=== PATIENT | male | born 1950 | race Caucasian/White ===

== ENCOUNTER 2018-01-28 12:32 | Inpatient (IN) | payer OTHER, MEDICAID, MEDICARE ==
[2018-01-28] MEDS: morphine 4 MG/ML VIAL IV (13:20)
[2018-01-28] MEDS: ONDANSETRON 4 MG INJ IV (13:20)
[2018-01-28] MEDS: NITROGLYCERIN 2% 1 GM OINT PKT TD (13:20)
[2018-01-28] MEDS: ASPIRIN 81 MG TAB PO (13:20)
[2018-01-28] MEDS: NITROGLYCERIN (SL) 0.4 MG TAB SL (13:21)
[2018-01-28 13:27] LABS: ADD MAN DIFF? NO
[2018-01-28 13:30] LABS: BASOPHIL # 0.1 10^3/ul (0.0-0.1); BASOPHILS % 0.7 % (0.0-2.0); EOSINOPHILS # 0.4 10^3/ul (0.0-0.5); EOSINOPHILS % 3.9 % (0.0-7.0); HEMATOCRIT 33.7 % (42.0-52.0); HEMOGLOBIN 11.7 g/dl (14.0-18.0); LYMPHOCYTES # 1.6 10^3/ul (0.8-2.9); LYMPHOCYTES % 17.6 % (15.0-51.0); MEAN CORPUSCULAR HEMOGLOBIN 30.8 pg (29.0-33.0); MEAN CORPUSCULAR HGB CONC 34.7 g/dl (32.0-37.0); MEAN CORPUSCULAR VOLUME 88.7 fl (82.0-101.0); MEAN PLATELET VOLUME 11.1 fl (7.4-10.4); MONOCYTE # 0.9 10^3/ul (0.3-0.9); MONOCYTES % 10.1 % (0.0-11.0); NEUTROPHIL # 6.1 10^3/ul (1.6-7.5); NEUTROPHILS % 67.4 % (39.0-77.0); PLATELET COUNT 200 10^3/UL (140-415); RED CELL DISTRIBUTION WIDTH 12.8 % (11.5-14.5)
[2018-01-28 13:34] LABS: INR 0.92; PARTIAL THROMBOPLASTIN TIME 28.1 Sec (23.0-35.0); PROTIME 12.4 Sec (11.9-14.9)
[2018-01-28 13:36] LABS: ALANINE AMINOTRANSFERASE 35 IU/L (13-69); ALBUMIN 4.3 g/dl (3.3-4.9); ALBUMIN/GLOBULIN RATIO 1.43; ALKALINE PHOSPHATASE 97 IU/L (42-121); ANION GAP 12 (8-16); ASPARTATE AMINO TRANSFERASE 46 IU/L (15-46); BILIRUBIN,INDIRECT 0.4 mg/dl (0-1.1); BILIRUBIN,TOTAL 0.4 mg/dl (0.2-1.3); BLOOD UREA NITROGEN 21 mg/dl (7-20); CALCIUM 9.8 mg/dl (8.4-10.2); CARBON DIOXIDE 25 mmol/L (21-31); CHLORIDE 111 mmol/L (97-110); CREATININE 1.28 mg/dl (0.61-1.24); GLUCOSE 138 mg/dl (70-220); POTASSIUM 4.1 mmol/L (3.5-5.1); SODIUM 144 mmol/L (135-144); TOTAL PROTEIN 7.3 g/dl (6.1-8.1)
[2018-01-28 13:48] LABS: B-TYPE NATRIURETIC PEPTIDE 1170 PG/ML (0-125)
[2018-01-28] MEDS ORDERED: ONDANSETRON 4 MG INJ IV ×2 (15:00→16:00)
[2018-01-28] MEDS ORDERED: ACETAMINOPHEN 325 MG TAB PO (15:00)
[2018-01-28] MEDS: SOD CHLORIDE 0.9% 1,000 ML IV (15:28)
[2018-01-28] MEDS ORDERED: morphine 2 MG INJ IV (16:00)
[2018-01-28] MEDS ORDERED: NACL 0.9% 3 ML SYG IV (16:00)
[2018-01-28] MEDS ORDERED: NITROGLYCERIN (SL) 0.4 MG TAB SL (16:00)
[2018-01-28] MEDS ORDERED: HYDROCODONE/APAP (5/325) TAB PO (16:00)
[2018-01-28] MEDS: ENOXAPARIN 100 MG/ML SYG SC (16:03)
[2018-01-28] MEDS: ISOSORBIDE MONONITRATE(SR)30 MG TAB PO (18:37)
[2018-01-28 19:23] LABS: CREATINE KINASE 165 IU/L (23-200)
[2018-01-28 19:32] LABS: CK INDEX 1.1; CK-MB 1.81 ng/ml (0.0-2.4)
[2018-01-28] MEDS: FAMOTIDINE 20 MG TAB PO (20:50)
[2018-01-28] MEDS: ATORVASTATIN 80 MG TAB PO (20:50)
[2018-01-28] MEDS: TICAGRELOR 90 MG TABLET PO (20:56)
[2018-01-28] MEDS ORDERED: ATORVASTATIN 20 MG TAB PO (21:00)
[2018-01-29 01:19] LABS: CREATINE KINASE 131 IU/L (23-200)
[2018-01-29] MEDS: NITROGLYCERIN (SL) 0.4 MG TAB SL (05:16)
[2018-01-29 05:42] LABS: ADD MAN DIFF? NO
[2018-01-29 05:49] LABS: BASOPHIL # 0.1 10^3/ul (0.0-0.1); BASOPHILS % 0.8 % (0.0-2.0); EOSINOPHILS # 0.5 10^3/ul (0.0-0.5); EOSINOPHILS % 5.2 % (0.0-7.0); HEMATOCRIT 29.6 % (42.0-52.0); HEMOGLOBIN 10.1 g/dl (14.0-18.0); LYMPHOCYTES # 1.4 10^3/ul (0.8-2.9); MEAN CORPUSCULAR HGB CONC 34.1 g/dl (32.0-37.0); MEAN CORPUSCULAR VOLUME 90.8 fl (82.0-101.0); MEAN PLATELET VOLUME 10.7 fl (7.4-10.4); MONOCYTE # 0.8 10^3/ul (0.3-0.9); MONOCYTES % 8.9 % (0.0-11.0); NEUTROPHIL # 6.4 10^3/ul (1.6-7.5); NEUTROPHILS % 69.7 % (39.0-77.0); PLATELET COUNT 176 10^3/UL (140-415); RED BLOOD COUNT 3.26 10^6/ul (4.70-6.10); RED CELL DISTRIBUTION WIDTH 13.1 % (11.5-14.5)
[2018-01-29 05:49] LABS: WHITE BLOOD COUNT 9.2 10^3/ul (4.8-10.8)
[2018-01-29 06:16] LABS: ALANINE AMINOTRANSFERASE 48 IU/L (13-69); ALBUMIN 3.1 g/dl (3.3-4.9); ALBUMIN/GLOBULIN RATIO 1.14; ALKALINE PHOSPHATASE 76 IU/L (42-121); ANION GAP 10 (8-16); ASPARTATE AMINO TRANSFERASE 36 IU/L (15-46); BILIRUBIN,INDIRECT 0.4 mg/dl (0-1.1); BILIRUBIN,TOTAL 0.4 mg/dl (0.2-1.3); BLOOD UREA NITROGEN 29 mg/dl (7-20); CALCIUM 9.1 mg/dl (8.4-10.2); CARBON DIOXIDE 26 mmol/L (21-31); CHLORIDE 110 mmol/L (97-110); CREATININE 1.81 mg/dl (0.61-1.24); GLUCOSE 142 mg/dl (70-220); MAGNESIUM 1.9 mg/dl (1.7-2.5); SODIUM 142 mmol/L (135-144); TOTAL PROTEIN 5.8 g/dl (6.1-8.1)
[2018-01-29 06:37] LABS: HEMOGLOBIN A1C 7.9 % (0-5.9)
[2018-01-29] MEDS: ASPIRIN 81 MG TAB PO (08:15)
[2018-01-29] MEDS: FAMOTIDINE 20 MG TAB PO ×2 (08:15→20:31)
[2018-01-29] MEDS: ISOSORBIDE MONONITRATE(SR)30 MG TAB PO (08:15)
[2018-01-29] MEDS: LOSARTAN 50 MG TAB PO (08:16)
[2018-01-29] MEDS: TICAGRELOR 90 MG TABLET PO ×2 (08:17→20:52)
[2018-01-29] MEDS ORDERED: GLUCOSE GEL 15 GRAM TUBE BUCCAL (10:30)
[2018-01-29] MEDS ORDERED: DEXTROSE 50% 50 ML SYRINGE IV ×2 (10:30)
[2018-01-29] MEDS ORDERED: GLUCOSE GEL 15 GRAM TUBE PO ×2 (10:30)
[2018-01-29] MEDS ORDERED: GLUCAGON 1 MG INJ IM (10:30)
[2018-01-29] MEDS: SOD CHLORIDE 0.9% 1,000 ML IV (10:39)
[2018-01-29] MEDS: INSULIN ASPART [NOVOLOG] 3 ML PEN SC ×3 (12:00→20:52)
[2018-01-29 12:14] LABS: ANION GAP 12 (8-16); BLOOD UREA NITROGEN 28 mg/dl (7-20); CALCIUM 9.2 mg/dl (8.4-10.2); CARBON DIOXIDE 24 mmol/L (21-31); CHLORIDE 109 mmol/L (97-110); CREATININE 1.46 mg/dl (0.61-1.24); GLUCOSE 130 mg/dl (70-220); POTASSIUM 4.1 mmol/L (3.5-5.1); SODIUM 141 mmol/L (135-144)
[2018-01-29 14:35] LABS: ADD UMIC YES; UR ASCORBIC ACID NEGATIVE (NEGATIVE); UR BILIRUBIN (Dip) NEGATIVE (NEGATIVE); UR BLOOD (Dip) 1+ mg/dL (NEGATIVE); UR CLARITY CLEAR (CLEAR); UR COLOR YELLOW (YELLOW); UR GLUCOSE (Dip) NEGATIVE (NEGATIVE); UR KETONES (Dip) NEGATIVE (NEGATIVE); UR LEUKOCYTE ESTERASE (Dip) NEGATIVE Leu/ul (NEGATIVE); UR NITRITE (Dip) NEGATIVE (NEGATIVE); UR RBC 1 /HPF (0-5); UR SPECIFIC GRAVITY (Dip) 1.012 (1.003-1.030); UR TOTAL PROTEIN (Dip) NEGATIVE (NEGATIVE); UR UROBILINOGEN (Dip) NEGATIVE (NEGATIVE); UR WBC 2 /HPF (0-5)
[2018-01-29] MEDS ORDERED: DOCUSATE SODIUM 100 MG CAP PO (16:00)
[2018-01-29 17:07] LABS: SODIUM,URINE RANDOM 57 mmol/L (30-90)
[2018-01-29 17:07] LABS: CREATININE,URINE RANDOM 111.69 mg/dl (20-370)
[2018-01-29] MEDS: ACETAMINOPHEN 325 MG TAB PO (19:28)
[2018-01-29] MEDS: ATORVASTATIN 80 MG TAB PO (20:31)
[2018-01-30] MEDS: ACCU-CHEK XX (02:14)
[2018-01-30] MEDS: SOD CHLORIDE 0.9% 1,000 ML IV (05:35)
[2018-01-30 06:04] LABS: ADD MAN DIFF? NO
[2018-01-30 06:13] LABS: WHITE BLOOD COUNT 7.6 10^3/ul (4.8-10.8)
[2018-01-30 06:13] LABS: BASOPHIL # 0.1 10^3/ul (0.0-0.1); BASOPHILS % 0.8 % (0.0-2.0); EOSINOPHILS # 0.5 10^3/ul (0.0-0.5); EOSINOPHILS % 6.3 % (0.0-7.0); HEMATOCRIT 29.4 % (42.0-52.0); HEMOGLOBIN 10.1 g/dl (14.0-18.0); LYMPHOCYTES # 1.6 10^3/ul (0.8-2.9); LYMPHOCYTES % 21.3 % (15.0-51.0); MEAN CORPUSCULAR HEMOGLOBIN 30.7 pg (29.0-33.0); MEAN CORPUSCULAR HGB CONC 34.4 g/dl (32.0-37.0); MEAN CORPUSCULAR VOLUME 89.4 fl (82.0-101.0); MEAN PLATELET VOLUME 11.3 fl (7.4-10.4); MONOCYTE # 0.6 10^3/ul (0.3-0.9); MONOCYTES % 8.5 % (0.0-11.0); NEUTROPHIL # 4.8 10^3/ul (1.6-7.5); NEUTROPHILS % 62.7 % (39.0-77.0); PLATELET COUNT 182 10^3/UL (140-415); RED BLOOD COUNT 3.29 10^6/ul (4.70-6.10); RED CELL DISTRIBUTION WIDTH 12.9 % (11.5-14.5)
[2018-01-30 06:49] LABS: ANION GAP 9 (8-16); BLOOD UREA NITROGEN 24 mg/dl (7-20); CARBON DIOXIDE 26 mmol/L (21-31); CHLORIDE 112 mmol/L (97-110); GLUCOSE 138 mg/dl (70-220); MAGNESIUM 1.9 mg/dl (1.7-2.5); PHOSPHORUS 3.1 mg/dl (2.5-4.9); POTASSIUM 3.9 mmol/L (3.5-5.1); SODIUM 143 mmol/L (135-144)
[2018-01-30] MEDS: INSULIN ASPART [NOVOLOG] 3 ML PEN SC ×2 (08:12→11:58)
[2018-01-30] MEDS: FAMOTIDINE 20 MG TAB PO (08:26)
[2018-01-30] MEDS: ASPIRIN 81 MG TAB PO (08:26)
[2018-01-30] MEDS: ISOSORBIDE MONONITRATE(SR)60 MG TAB PO (08:26)
[2018-01-30] MEDS: TICAGRELOR 90 MG TABLET PO (09:07)
== END 2018-01-30 14:02 | disposition home or self-care (01) | DRG 281 ==
LOC: E/R 12:32 → 6WM 14:56
DX: I21.4 Non-ST elevation (NSTEMI) myocardial infarction (principal); N17.9 Acute kidney failure, unspecified; I25.10 Atherosclerotic heart disease of native coronary artery without angina pectoris; I10 Essential (primary) hypertension; E78.5 Hyperlipidemia, unspecified; Z95.5 Presence of coronary angioplasty implant and graft; Z87.891 Personal history of nicotine dependence; R00.1 Bradycardia, unspecified; E11.9 Type 2 diabetes mellitus without complications
CPT/HCPCS: 71045; 76775; 80048; 80053; 81001; 82550; 82553; 82962; 83036; 83735; 83880; 84100; 84155; 84300; 84484; 85025; 85610; 85730; 87081; 93005; 93306; 96374; 96375; 99285-25